=== PATIENT | female | born 1965 | race Two or more races ===

== ENCOUNTER 2024-11-16 02:47 | Emergency (ER) | payer OTHER ==
[~2024-11-16] VITALS: Ht 157.5 cm; Wt 64.4 kg
[2024-11-16] MEDS ORDERED: JARDIANCE10 MG PO (03:04)
[2024-11-16] MEDS ORDERED: CANDESARTAN CIL16 MG (03:05)
== END 2024-11-16 04:19 | disposition home or self-care (01) ==
LOC: ER 02:47
DX: F41.1 Generalized anxiety disorder (principal); F41.9 Anxiety disorder, unspecified; Z88.6 Allergy status to analgesic agent